=== PATIENT | female | born 1950 | race Caucasian/White ===

== ENCOUNTER 2016-07-06 20:22 | Emergency (ER) | payer OTHER ==
[~2016-07-06] VITALS: Ht 167.6 cm; Wt 68.2 kg
[~2016-07-06 20:22] MED LIST: LIPITOR 40MG TA40 MG PO; PERCOCET 325 MG1 TA3 PO; PRIL40 PO; PRINZIDE 12.5 M1 TA1 PO; PROBIOTIC-MAJOR PO; VITAMIN D 1001000 IU PO; VITAMINC1000TA PO; ZOFRAN 4MG T4 MG/TAB PO
[2016-07-06 20:27] VITALS: TEMP 98.6
[2016-07-06] MEDS ORDERED: PERCOCET 325 MG1 TA2 PO (21:35)
[2016-07-06 21:53] VITALS: BP 136/72; PULSE 89
== END 2016-07-06 21:54 | disposition home or self-care (01) ==
LOC: COL.ER 20:22
DX: S20.212A Contusion of left front wall of thorax, initial encounter (principal); W01.198A Fall on same level from slipping, tripping and stumbling with subsequent striking against other object, initial encounter; Y92.007 Garden or yard of unspecified non-institutional (private) residence as the place of occurrence of the external cause; I10 Essential (primary) hypertension
CPT/HCPCS: A9284

== ENCOUNTER → 2016-11-16 | Outpatient (CLI) | payer OTHER ==
[~2016-11-16] MED LIST changes: +PERCOCET 325 MG1 TA2 PO
== END ==
LOC: MC.RAD 14:42
DX: Z12.31 Encounter for screening mammogram for malignant neoplasm of breast (principal)

== ENCOUNTER → 2017-12-26 | Outpatient (CLI) | payer MEDICARE, OTHER | LOC: MC.RAD 13:58 | DX: Z12.31 Encounter for screening mammogram for malignant neoplasm of breast (principal) ==

== ENCOUNTER 2018-01-17 16:00 | Outpatient (RCR) | payer MEDICARE, OTHER | END 2018-02-03 11:17 | disposition home or self-care (01) | LOC: MKS.ESL.PT 16:00 | DX: M62.830 Muscle spasm of back (principal) | CPT/HCPCS: G8978-GP; G8979-GP; G8980-GP ==

== ENCOUNTER 2018-08-25 00:16 | Inpatient (IN) | payer MEDICARE, OTHER ==
[~2018-08-25] VITALS: Ht 167.6 cm; Wt 72.7 kg
[2018-08-25] VITALS (431 sets, daily range): BP systolic 106–140; BP diastolic 56–94; PULSE 84–88; TEMP 98.1–98.3; O2SAT 76–100
[2018-08-25 00:36] LABS: BASO # 0.1 (0.0-0.2); BASO % 1.3 % (0.0-2.0); EOS # 0.3 (0.0-0.7); EOS % 3.6 % (0-4.0); GRAN # 5.3 (1.4-6.5); GRAN % 57.8 % (42.2-75.2); HEMATOCRIT 39.5 % (37.0-47.0); HEMOGLOBIN 13.6 g/dl (12.5-16.0); LYMPH # 2.6 (1.2-3.4); LYMPH % 28.2 % (20.0-51.0); MEAN CELL VOLUME 83 fl (80.0-100.0); MEAN CORPUSCULAR HEMOGLOBIN 29 pg (27.0-31.0); MEAN CORPUSCULAR HGB CONC 34 g/dl (33.0-37.0); MEAN PLATELET VOLUME 10.1 fl (7.4-10.4); MONO # 0.8 (0.1-0.6); MONO % 8.9 % (1.7-9.3); PLATELET COUNT 337 K/mm3 (130-400); RED BLOOD COUNT 4.77 M/mm3 (4.10-5.30); REDCELL DISTRIBUTION WIDTH-CV 13.2 % (11.5-14.5)
[2018-08-25 00:43] LABS: ALBUMIN 4.4 gm/dL (3.5-5.0); BILIRUBIN,TOTAL 1.4 mg/dL (0.0-1.0); CALCIUM 9.6 mg/dL (8.4-10.2); CREATININE, serum 0.91 (0.52-1.25); POTASSIUM 3.2 mmol/L (3.4-5.0); TOTAL PROTEIN 7.6 gm/dL (6.4-8.2)
[2018-08-25 00:44] LABS: INR 0.9 (0.8-3.0); PROTHROMBIN TIME 10.2 SECONDS (9.7-12.8)
[2018-08-25 01:02] LABS: TROPONIN-I 0.115 ng/mL (0.000-0.035)
[2018-08-25] MEDS ORDERED: PRIL40 PO (01:59)
[2018-08-25] MEDS ORDERED: VITAMIN C500 MG PO (02:27)
[2018-08-25] MEDS ORDERED: CALCIUM CARBON650 M2 PO (02:29)
[2018-08-25] MEDS ORDERED: FOSAMAX 70MG TA70 MG PO (02:30)
[2018-08-25 03:50] LABS: BASO # 0.1 (0.0-0.2); BASO % 0.7 % (0.0-2.0); EOS # 0.4 (0.0-0.7); EOS % 2.7 % (0-4.0); GRAN # 10.2 (1.4-6.5); GRAN % 69.1 % (42.2-75.2); HEMOGLOBIN 12.6 g/dl (12.5-16.0); LYMPH # 3.2 (1.2-3.4); LYMPH % 21.4 % (20.0-51.0); MEAN CELL VOLUME 82 fl (80.0-100.0); MEAN CORPUSCULAR HEMOGLOBIN 29 pg (27.0-31.0); MEAN CORPUSCULAR HGB CONC 35 g/dl (33.0-37.0); MEAN PLATELET VOLUME 10.4 fl (7.4-10.4); MONO # 0.9 (0.1-0.6); MONO % 5.9 % (1.7-9.3); PLATELET COUNT 266 K/mm3 (130-400); RED BLOOD COUNT 4.42 M/mm3 (4.10-5.30); REDCELL DISTRIBUTION WIDTH-CV 13.3 % (11.5-14.5)
[2018-08-25 03:51] LABS: HEMATOCRIT 36.3 % (37.0-47.0)
[2018-08-25 04:11] LABS: ALBUMIN 3.7 gm/dL (3.5-5.0); BILIRUBIN,TOTAL 1.2 mg/dL (0.0-1.0); CALCIUM 8.7 mg/dL (8.4-10.2); CHOLESTEROL RISK RATIO 4.4; CREATININE, serum 0.82 (0.52-1.25); POTASSIUM 3.2 mmol/L (3.4-5.0); TOTAL PROTEIN 6.6 gm/dL (6.4-8.2)
[2018-08-25 04:26] LABS: TROPONIN-I 3 HR POST INITIAL 0.123 ng/mL (0.000-0.034)
--- NOTE | 2018-08-25 05:57 | NUR ---
Received verbal report from ALFONZO Riley. Patient care received.
--- NOTE | 2018-08-25 06:22 | NUR ---
Adjusted heparin drip rate to 8.5 ml per hour from 8.7 ml/hr per pharmacy.
--- NOTE | 2018-08-25 08:00 | NUR ---
HEPARIN GTT PAUSED FOR 1 HOUR AND WILL RESTART AT 0900 AT 650 UNITS/HR, PER PROTOCOL.
--- NOTE | 2018-08-25 10:58 | NUR ---
EDMUND rounded with the team. The patient will be tranfered to [facility] for care. There are no additional needs at this time.
--- NOTE | 2018-08-25 11:51 | NUR ---
PATIENT SENT WITH EMS AT THIS TIME.
--- NOTE | 2018-08-25 12:13 | NUR ---
REPORT CALLED TO RECIEVING NURSE AT [facility].
== END 2018-08-25 11:50 | disposition short-term general hospital (02) | DRG 282 ==
LOC: COL.ER 00:16 → ICU 01:39
PROVIDERS: Emergency Medicine; Nurse Practitioner Family; ADMIT Hospitalist
DX: I21.4 Non-ST elevation (NSTEMI) myocardial infarction (principal); I10 Essential (primary) hypertension; E87.6 Hypokalemia; E78.5 Hyperlipidemia, unspecified; K21.9 Gastro-esophageal reflux disease without esophagitis; Z88.1 Allergy status to other antibiotic agents
CPT/HCPCS: 99223-AI; J1644; J2270; J3480; J7030

== ENCOUNTER → 2018-12-05 | Outpatient (RCR) | payer MEDICARE, OTHER ==
[~2018-12-05] MED LIST changes: +CALCIUM CARBON650 M2 PO; +FOSAMAX 70MG TA70 MG PO; +VITAMIN C500 MG PO
== END | disposition home or self-care (01) ==
LOC: COL.CR
DX: Z48.812 Encounter for surgical aftercare following surgery on the circulatory system (principal); I21.9 Acute myocardial infarction, unspecified; Z95.5 Presence of coronary angioplasty implant and graft

== ENCOUNTER → 2018-12-07 | Outpatient (CLI) | payer MEDICARE, OTHER | LOC: COL.RAD 12:43 | DX: K57.30 Diverticulosis of large intestine without perforation or abscess without bleeding (principal); R91.8 Other nonspecific abnormal finding of lung field; K44.9 Diaphragmatic hernia without obstruction or gangrene; Z98.890 Other specified postprocedural states; R22.42 Localized swelling, mass and lump, left lower limb | CPT/HCPCS: Q9967 ==

== ENCOUNTER 2018-12-13 15:49 | Outpatient (RCR) | payer MEDICARE, OTHER | END 2018-12-27 05:56 | disposition home or self-care (01) | LOC: COL.CR 15:49 | DX: Z48.812 Encounter for surgical aftercare following surgery on the circulatory system (principal); Z95.5 Presence of coronary angioplasty implant and graft; I25.2 Old myocardial infarction ==

== ENCOUNTER → 2018-12-20 | Outpatient (CLI) | payer MEDICARE, OTHER | LOC: COL.RAD 12:34 | DX: K44.9 Diaphragmatic hernia without obstruction or gangrene (principal); J98.4 Other disorders of lung; R91.1 Solitary pulmonary nodule | CPT/HCPCS: Q9967 ==

== ENCOUNTER → 2018-12-29 | Outpatient (CLI) | payer MEDICARE, OTHER | LOC: MC.RAD 12:49 | DX: Z12.31 Encounter for screening mammogram for malignant neoplasm of breast (principal) ==

== ENCOUNTER 2019-06-25 16:25 | Emergency (ER) | payer MEDICARE, OTHER ==
[~2019-06-25] VITALS: Ht 167.6 cm; Wt 67.3 kg
[~2019-06-25 16:25] MED LIST changes: -BRILINTA90 MG PO
[2019-06-25 16:34] VITALS: TEMP 97.8
[2019-06-25] MEDS ORDERED: BRILINTA90 MG PO (16:57)
[2019-06-25 17:03] VITALS: BP 135/73; PULSE 71
== END 2019-06-25 17:04 | disposition home or self-care (01) ==
LOC: COL.ER 16:25
DX: T82.838A Hemorrhage due to vascular prosthetic devices, implants and grafts, initial encounter (principal); I10 Essential (primary) hypertension; I25.10 Atherosclerotic heart disease of native coronary artery without angina pectoris

== ENCOUNTER → 2019-06-25 | Outpatient (CLI) | payer MEDICARE, OTHER ==
[~2019-06-25] MED LIST changes: +BRILINTA90 MG PO
== END ==
LOC: COL.RAD 12:46
DX: K44.9 Diaphragmatic hernia without obstruction or gangrene (principal); R91.1 Solitary pulmonary nodule
CPT/HCPCS: Q9967

== ENCOUNTER → 2020-04-17 | Outpatient (CLI) | payer MEDICARE, OTHER ==
[~2020-04-17] MED LIST changes: +BRILINTA90 MG PO
[2020-04-17 10:44] LABS: BASO # 0.1 (0.0-0.2); BASO % 0.5 % (0.0-2.0); EOS # 0.8 (0.0-0.7); EOS % 8.7 % (0-4.0); GRAN # 6.1 (1.4-6.5); GRAN % 65.1 % (42.2-75.2); HEMATOCRIT 41.5 % (37.0-47.0); HEMOGLOBIN 13.5 g/dl (12.5-16.0); LYMPH # 1.8 (1.2-3.4); LYMPH % 19.1 % (20.0-51.0); MEAN CELL VOLUME 86 fl (80.0-100.0); MEAN CORPUSCULAR HEMOGLOBIN 28 pg (27.0-31.0); MEAN CORPUSCULAR HGB CONC 33 g/dl (33.0-37.0); MEAN PLATELET VOLUME 10.3 fl (7.4-10.4); MONO # 0.6 (0.1-0.6); MONO % 6.3 % (1.7-9.3); PLATELET COUNT 344 K/mm3 (130-400); RED BLOOD COUNT 4.85 M/mm3 (4.10-5.30); REDCELL DISTRIBUTION WIDTH-CV 13.7 % (11.5-14.5)
[2020-04-17 11:04] LABS: ALBUMIN 4.7 gm/dL (3.5-5.0); BILIRUBIN,TOTAL 1.7 mg/dL (0.0-1.0); CALCIUM 10.1 mg/dL (8.4-10.2); CREATININE, serum 1.21 (0.52-1.25); POTASSIUM 3.8 mmol/L (3.4-5.0); TOTAL PROTEIN 7.9 gm/dL (6.4-8.2)
== END ==
LOC: COL.RAD 10:19
PROVIDERS: Nurse Practitioner Family
DX: K44.9 Diaphragmatic hernia without obstruction or gangrene (principal)
CPT/HCPCS: Q9967

== ENCOUNTER → 2020-04-30 | Outpatient (CLI) | payer MEDICARE, OTHER | LOC: COL.RAD | DX: R10.11 Right upper quadrant pain (principal) | CPT/HCPCS: A9537; J2805 ==

== ENCOUNTER → 2021-03-23 | Outpatient (CLI) | payer MEDICARE, OTHER | LOC: MC.RAD 11:27 | DX: Z12.31 Encounter for screening mammogram for malignant neoplasm of breast (principal) ==

== ENCOUNTER → 2021-08-11 | Outpatient (CLI) | payer MEDICARE, OTHER | LOC: COL.RAD 07:32 | DX: R11.2 Nausea with vomiting, unspecified (principal); R14.0 Abdominal distension (gaseous); R10.84 Generalized abdominal pain; R19.7 Diarrhea, unspecified | CPT/HCPCS: A9541 ==

== ENCOUNTER → 2022-03-29 | Outpatient (CLI) | payer MEDICARE, OTHER | LOC: MC.RAD 11:15 | DX: Z12.31 Encounter for screening mammogram for malignant neoplasm of breast (principal) ==